=== PATIENT | female | born 1985 | race Caucasian/White ===

== ENCOUNTER 2019-01-10 17:11 | Emergency (ER) | payer OTHER | END 2019-01-10 19:10 | disposition home or self-care (01) | LOC: FTE 17:11 | DX: S82.65XA Nondisplaced fracture of lateral malleolus of left fibula, initial encounter for closed fracture (principal); X58.XXXA Exposure to other specified factors, initial encounter; Y92.9 Unspecified place or not applicable | CPT/HCPCS: 29515; 99282-25 ==